=== PATIENT | male | born 1955 | race Caucasian/White ===

== ENCOUNTER → 2024-09-09 | Outpatient (CLI) | payer MEDICARE, OTHER ==
[~2024-09-09] MED LIST: ATOR20TA PO; MULT-419 PO; PANT40TA6 PO; TUME1CAP PO
== END | disposition home or self-care (01) ==
LOC: RAD 16:03
PROVIDERS: ATTEND Orthopaedic Surgery
DX: M17.11 Unilateral primary osteoarthritis, right knee (principal); M25.461 Effusion, right knee; M85.88 Other specified disorders of bone density and structure, other site
CPT/HCPCS: 73562-RT

== ENCOUNTER 2025-04-20 06:30 | Day surgery (SDC) | payer MEDICARE, OTHER ==
[~2025-04-20] VITALS: Ht 180.3 cm; Wt 88.7 kg
[2025-04-20] VITALS (11 sets, daily range): BP systolic 119–160; BP diastolic 66–97; PULSE 45–66; RESP 14–16; TEMP 97–98.4; O2SAT 94–97
[~2025-04-20 06:30] MED LIST changes: +NS 1000ML 1,000 ML ONE; +TURM1TAB PO
[2025-04-20 06:59] LABS: BASOPHIL % 0.6 % (0.2-1.2); EOSINOPHIL # 0.2 10^3/uL (0.0-0.2); EOSINOPHIL % 2.5 % (0.0-5.0); HEMATOCRIT(ML) 46.3 % (37.0-53.0); HEMOGLOBIN 15.7 g/dL (13.9-16.3); LYMPHOCYTES # 2.18 10^3/uL1 (1.0-4.8); LYMPHOCYTES % 32.4 % (24.0-44.0); MEAN CORP HGB 30.4 pg (26-34); MEAN CORP HGB CONCENTRATION 33.9 g/dL (33-36.5); MEAN CORP VOLUME 89.7 fL (78-100); MONOCYTES # 0.6 10^3/uL (0.3-0.8); MONOCYTES % 8.6 % (5.0-12.0); NEUTROPHIL # 3.8 10^3/uL (1.8-7.7); NEUTROPHILS % 55.8 % (41.0-85.0); PLATELET COUNT 201 10^3/uL (150-400); RED BLOOD CELL 5.16 10^6/uL (4.50-5.90); RED CELL DISTRIBUTION WIDTH 13.2 % (11.5-14.5); WHITE BLOOD CELL 6.7 10^3/uL (4.5-11.0)
[2025-04-20] MEDS: NS 1000ML 1,000 ML IV ONE (07:00)
[2025-04-20 07:05] LABS: +ADD MANUAL DIFF(NO CHRG) NO
[2025-04-20 07:18] LABS: ALBUMIN/GLOBULIN RATIO 1.052; ANION GAP 14.2; BUN/CREATININE RATIO 19.54 (10.0-20.0); CALCIUM 8.3 mg/dL (8.4-10.5); CARBON DIOXIDE 24.7 mmol/L (20.0-32); CREATININE SERUM 0.87 mg/dL (0.59-1.40); EST GFR, NON-AA 86.5 (>/=60); POTASSIUM 3.9 mmol/L (3.6-5.2)
[2025-04-20] MEDS ORDERED: SODIUM CHLORIDE IRR BOTTLE IR ONE (07:21)
[2025-04-20] MEDS ORDERED: XYLOCAINE 1%-EPI ONE (07:21)
[2025-04-20] MEDS ORDERED: SUBLIMAZE 100MCG/2ML ONE (07:56)
[2025-04-20] MEDS ORDERED: XYLOCAINE 2% 5ML VIAL ONE (07:56)
[2025-04-20] MEDS ORDERED: VERSED ONE (07:56)
[2025-04-20] MEDS ORDERED: DIPRIVAN IV ONE (07:57)
[2025-04-20] MEDS ORDERED: DECADRON ONE (08:08)
[2025-04-20] MEDS ORDERED: ZOFRAN ONE (08:08)
[2025-04-20] MEDS ORDERED: ULTRAM ONE (10:14)
== END 2025-04-20 10:30 | disposition home or self-care (01) ==
LOC: SDC 06:30
PROVIDERS: ATTEND Orthopaedic Surgery
DX: M71.122 Other infective bursitis, left elbow (principal); K21.9 Gastro-esophageal reflux disease without esophagitis; E78.00 Pure hypercholesterolemia, unspecified; Z98.890 Other specified postprocedural states; Z79.899 Other long term (current) drug therapy
CPT/HCPCS: 24105; 80053; 85025; 36415; 87070; 87186 ×3; 87077; 87075; J7030; A4649 ×2; J1100; A4217; J2704; J2003; J2405; J2250; J3010; J8499